=== PATIENT | female | born 1965 | race African-American/Black ===

== ENCOUNTER 2021-08-23 23:31 | Inpatient (IN) | payer OTHER ==
[~2021-08-23] VITALS: Ht 172.7 cm; Wt 117.0 kg
[2021-08-24] VITALS (11 sets, daily range): BP systolic 111–142; BP diastolic 72–139
[2021-08-24] MEDS ORDERED: SODIUM CHLORIDE 0.9% 1,000 ML IV ONE (00:30)
[2021-08-24 01:37] LABS: HEMATOCRIT. 23.1 % (36.0-48.0); HEMOGLOBIN. 7.2 g/dL (12.0-16.0); MEAN CORPUSCULAR HEMOGLOBIN 24.1 pg (28.0-32.0); MEAN CORPUSCULAR VOLUME 76.7 fL (81.0-99.0); PLATELET 166 x1000/uL (130-400); RED BLOOD CELL COUNT 3.01 mill/uL (4.2-5.4); RED CELL DISTRIBUTION WIDTH 21.8 % (11.6-14.6)
[2021-08-24 01:45] LABS: CHLORIDE 105 mEq/L (98-107)
[2021-08-24 01:47] LABS: INR 1.5; PROTHROMBIN TIME 15.5 sec (9.6-11.0)
[2021-08-24 02:19] LABS: PLATELET ESTIMATE NORMAL
[2021-08-24] MEDS ORDERED: VALC450 PO (06:23)
[2021-08-24] MEDS ORDERED: CALC-1098 MT (06:23)
[2021-08-24] MEDS ORDERED: DAPA10TA PO (06:23)
[2021-08-24] MEDS ORDERED: LOSA25TA26 PO (06:23)
[2021-08-24] MEDS ORDERED: PROT40 MT (06:23)
[2021-08-24] MEDS ORDERED: ESCI20TA PO (06:23)
[2021-08-24] MEDS ORDERED: NYSTATIN PO (06:23)
[2021-08-24] MEDS ORDERED: MELA10TA2 MT (06:23)
[2021-08-24] MEDS ORDERED: P20 PO (06:23)
[2021-08-24] MEDS ORDERED: P50 PO (06:23)
[2021-08-24] MEDS ORDERED: AMLO5TAB4 PO (06:23)
[2021-08-24] MEDS ORDERED: [UNRECOGNIZED DRUG - OTHER] (06:23)
[2021-08-24] MEDS ORDERED: NYSTATIN (06:23)
[2021-08-24] MEDS ORDERED: MG PLUS PROTEIN PO (06:23)
[2021-08-24] MEDS ORDERED: ACET-2708 PO (06:23)
[2021-08-24] MEDS ORDERED: CELL2 MT (06:23)
[2021-08-24] MEDS ORDERED: TACR1CAP2 MT (06:23)
[2021-08-24] MEDS ORDERED: KCL 10MEQ/50ML PREMIX 50 ML IV ONE (07:45)
[2021-08-24] MEDS ORDERED: POTASSIUM CHLORIDE INJ 30 MEQ in DEXT 5% WATER 235 ML IV NR (10:00)
[2021-08-24] MEDS ORDERED: DEXTROSE 50% WATER 50ML SYRINGE IV NR (13:14)
[2021-08-24] MEDS: PANTOPRAZOLE 80 MG in SODIUM CHLORIDE 0.9% 100 ML IV SCH ×2 (16:30→23:49)
[2021-08-24] MEDS ORDERED: DEXT 5%/0.9% NACL 1,000 ML IV SCH (17:00)
[2021-08-24] MEDS: BLOOD SUGAR DIAGNOSTIC STRIP TEST SCH ×2 (17:04→23:55)
[2021-08-24 18:15] LABS: HEMATOCRIT 24.7 % (36.0-48.0); HEMOGLOBIN 8.1 g/dL (12.0-16.0)
[2021-08-24] MEDS ORDERED: ONDANSETRON HCL 4MG/2ML INJ IV PRN (18:45)
[2021-08-24] MEDS ORDERED: ACETAMINOPHEN 650MG/20.3ML UDC PO NR (18:45)
[2021-08-24] MEDS ORDERED: TACROLIMUS 1MG CAPSULE PO SCH (21:00)
[2021-08-24] MEDS: MYCOPHENOLATE MOFETIL 500MG TABLET PO SCH (21:39)
[2021-08-24] MEDS: PREDNISONE 20MG TABLET PO SCH (21:40)
[2021-08-24 21:43] LABS: TOTAL IRON BINDING CAPACITY 221 ug/dL (250-450)
[2021-08-24 21:44] LABS: BASOPHILS % 0.1 % (0.0-2.0); EOSINOPHILS % 0.2 % (0.0-5.0); HEMATOCRIT. 24.8 % (36.0-48.0); HEMOGLOBIN. 8.1 g/dL (12.0-16.0); LYMPHOCYTES % 12.4 % (20.0-50.0); MEAN CORPUSCULAR HEMOGLOBIN 25.6 pg (28.0-32.0); MEAN CORPUSCULAR VOLUME 78.3 fL (81.0-99.0); MEAN PLATELET VOLUME 7.3 fl (7.4-10.4); MONOCYTES % 4.8 % (2.0-8.0); NEUTROPHILS % 82.5 % (40.0-76.0); PLATELET 139 x1000/uL (130-400); RED BLOOD CELL COUNT 3.17 mill/uL (4.2-5.4); RED CELL DISTRIBUTION WIDTH 22.2 % (11.6-14.6)
[2021-08-24 22:09] LABS: FOLIC ACID (FOLATE) SERUM >20 ng/mL ng/mL (>5.38); VITAMIN B12 SERUM >2000 pg/mL pg/mL (211-911)
[2021-08-24 22:12] LABS: FERRITIN 109 ng/mL (10-291)
[2021-08-24 22:14] LABS: PLATELET ESTIMATE NORMAL
[2021-08-25] VITALS: BP 137/83
[2021-08-25 04:00] VITALS: BP 123/86
[2021-08-25 05:49] LABS: INR 1.1; PROTHROMBIN TIME 12.1 sec (9.6-11.0)
[2021-08-25 05:50] LABS: HEMOGLOBIN. 7.9 g/dL (12.0-16.0); MEAN CORPUSCULAR HEMOGLOBIN 25.3 pg (28.0-32.0); MEAN CORPUSCULAR VOLUME 77.2 fL (81.0-99.0); MEAN PLATELET VOLUME 7.2 fl (7.4-10.4); PLATELET 147 x1000/uL (130-400); RED BLOOD CELL COUNT 3.11 mill/uL (4.2-5.4); RED CELL DISTRIBUTION WIDTH 21.9 % (11.6-14.6)
[2021-08-25] MEDS: BLOOD SUGAR DIAGNOSTIC STRIP TEST SCH (06:00)
[2021-08-25 06:03] LABS: CHLORIDE 105 mEq/L (98-107)
[2021-08-25 08:00] VITALS: BP 154/89
[2021-08-25] MEDS: MYCOPHENOLATE MOFETIL 500MG TABLET PO SCH (08:24)
[2021-08-25] MEDS: PANTOPRAZOLE 80 MG in SODIUM CHLORIDE 0.9% 100 ML IV SCH (08:25)
[2021-08-25] MEDS: PREDNISONE 20MG TABLET PO SCH (08:25)
[2021-08-25 09:00] VITALS: BP 154/89
[2021-08-25] MEDS ORDERED: TACROLIMUS 1MG CAPSULE PO SCH (09:00)
[2021-08-25 14:52] LABS: NUCLEATED RED BLOOD CELLS 1 /100 WBC; PLATELET ESTIMATE NORMAL
== END 2021-08-25 11:12 | disposition short-term general hospital (02) | DRG 378 ==
LOC: ER 23:31 → MICUSO 08-24 03:46 → ENRESERV 08-24 04:36 → 8WST 08-24 04:36
PROVIDERS: ADMIT Internal Medicine; ATTEND Internal Medicine
PROC: 30233K1 Transfusion of Nonautologous Frozen Plasma into Peripheral Vein, Percutaneous Approach (ICD-10-PCS; principal; 2021-08-24)
PROC: 30233N1 Transfusion of Nonautologous Red Blood Cells into Peripheral Vein, Percutaneous Approach (ICD-10-PCS; 2021-08-24)
DX: K57.31 Diverticulosis of large intestine without perforation or abscess with bleeding (principal); D62 Acute posthemorrhagic anemia; Z94.4 Liver transplant status; I82.432 Acute embolism and thrombosis of left popliteal vein; E44.1 Mild protein-calorie malnutrition; E11.9 Type 2 diabetes mellitus without complications; D50.9 Iron deficiency anemia, unspecified; E03.9 Hypothyroidism, unspecified; I10 Essential (primary) hypertension; F10.20 Alcohol dependence, uncomplicated; I95.9 Hypotension, unspecified; K40.90 Unilateral inguinal hernia, without obstruction or gangrene, not specified as recurrent; Z20.822 Contact with and (suspected) exposure to COVID-19; K42.9 Umbilical hernia without obstruction or gangrene; Z79.899 Other long term (current) drug therapy; Z79.01 Long term (current) use of anticoagulants; Z90.49 Acquired absence of other specified parts of digestive tract; Z88.0 Allergy status to penicillin; Z88.2 Allergy status to sulfonamides; Z96.89 Presence of other specified functional implants; Z68.39 Body mass index [BMI] 39.0-39.9, adult
CPT/HCPCS: 36415; 71045; 74176; 80048; 80053; 82270; 82607; 82728; 82746; 82962; 83540; 83550; 83605; 84145; 84484; 85014; 85018; 85025; 85044; 86850; 86900; 86920; 86927; 87015; 87045; 87426; 87427; 87449; 89055; 93005; 93970; 99291; C9113; J2405; J3480; J7030; J7042; J7050; J7060; J7507; J7512; J7517; P9016; P9017